=== PATIENT | female | born 1990 | race Caucasian/White ===

== ENCOUNTER 2017-03-07 08:33 | Emergency (ER) | payer OTHER ==
[2017-03-07 08:43] VITALS: BP 108/65
--- NOTE | 2017-03-07 12:58 | UC ---
Patricia Wade Edward, scribed for Nataliia Salazar DO on 03/07/17 at 0935 . Dizzy HPI HPI Summary: 27 y/o female presents to [facility] c/o acute on chronic dizziness starting two days ago. Patient repeatedly states she feels like she is "drunk". No EtOH use. PMHx dizzy spells since 11-12 y/o. In the past, patient has been able to sleep it off and uses Meclizine, which alleviates the dizziness. Patient states increased stressed from her job two days ago. Associated sx: REAL two days ago ( resolved now), lightheadedness, intermittent feelings of the room spinning, and nausea during episodes of room spinning. The room spinning is aggravated by turning her head quickly and turning to the side in bed. Patient denies syncope , unsteadiness, neck pain, fever, chills, CP, SOB. FHx mother has dizzy spells, breast CA, HTN. Medications reviewed on visit. - History Of Current Complaint Chief Complaint: UCDizziness Stated Complaint: DIZZINESS Time Seen by Provider: 03/07/17 09:33 Hx Obtained From: Patient Hx Last Menstrual Period: UNKNOWN-IUD Onset/Duration: Sudden Onset, Still Present Timing: Intermittent Episode Lasting Severity Initially: Moderate Severity Currently: Moderate Pain Intensity: 0 Character: Room Spinning - Intermittent, Lightheaded, Dizzy - Feels "drunk". No EtOH use Aggravating Factor(s): Headache Associated Signs And Symptoms: Positive: Negative - No neck pain, syncope, Nausea - During room spinning spells. Negative: Vomiting, Diaphoresis, Tinnitus , Chest Pain, SOB, Unsteady Gait, Decreased Oral Intake, Change In Medication, Change In Diet - Risk Factors Cardiac Risk Factors: Negative - Allergies/Home Medications Allergies/Adverse Reactions: Allergies Allergy/AdvReac Type Severity Reaction Status Date / Time No Known Allergies Allergy Verified 03/07/17 08:36 Home Medications: Home Medications Meclizine TAB* [Antivert 12.5 TAB*] 1 tab PO 03/07/17 [History] PMH/Surg Hx/FS Hx/Imm Hx Previously Healthy: No Neurological History: Other Other Neurological History: Dizzy spells - Surgical History Surgical History: Yes Surgery Procedure, Year, and Place: ORIF RIGHT ANKLE 08/2014 [facility] X2 - Family History Known Family History: Positive: Hypertension, Other - Mother has similar dizzy spells, breast CA - Social History Occupation: Employed Full-time Lives: With Family Alcohol Use: Occasionally Substance Use Type: None Substance Use Comment - Amount & Last Used: less than once a year Smoking Status (MU): Never Smoked Tobacco Review of Systems Constitutional: Negative - No fever, chills Skin: Negative Eyes: Negative ENT: Negative Respiratory: Negative - No SOB Cardiovascular: Negative - No CP Gastrointestinal: Negative Genitourinary: Negative Motor: Other - Unsteady during room spinning Neurovascular: Negative Musculoskeletal: Negative - No neck pain Neurological: Headache - Resolved now, Other - Dizziness, lightheadedness, feeling "drunk". No syncope Psychological: Negative All Other Systems Reviewed And Are Negative: Yes Physical Exam Triage Information Reviewed: Yes Appearance: No Pain Distress, Well-Nourished, Other: - looks uncomfortable Vital Signs: Initial Vital Signs Temp 98.3 F 03/07/17 08:38 Pulse 73 03/07/17 08:38 Resp 18 03/07/17 08:38 BP 108/65 03/07/17 08:38 Pulse Ox 98 03/07/17 08:38 Vital Signs Reviewed: Yes Eyes: Positive: Conjunctiva Clear. Negative: Discharge ENT: Positive: Hearing grossly normal, Pharynx normal, TMs normal, Other: - No lymphadenopathy. Negative: Tonsillar swelling, Tonsillar exudate, Trismus, Muffled/hoarse voice Neck: Positive: Supple, Nontender Respiratory: Positive: Lungs clear, Normal breath sounds, No respiratory distress, No accessory muscle use Cardiovascular: Positive: RRR, No Murmur Musculoskeletal Exam: Normal Neurological Exam: Normal - A&Ox3, CN II-XII INTACT, SENSORY MOTOR INTACT, REFLEXES INTACT, NO CEREBELLAR SIGNS, FACIAL SYMMETRY, NEGATIVE ROMBERG, NORMAL GAIT Neurological: Positive: Alert, Muscle Tone Normal Psychological: Positive: Age Appropriate Behavior Skin Exam: Normal, Other - Warm, dry, normal color Dizzy Course/Dx - Differential Dx/Diagnosis Differential Diagnosis/HQI/PQRI: Benign Paroxysmal Positional Vertigo, Labyrinthitis, Other - vertigo Provider Diagnoses: vertigo Discharge - Discharge Plan Condition: Stable Disposition: HOME Prescriptions: Meclizine TAB* [Antivert 12.5 TAB*] 25 mg PO TID PRN #30 tab PRN Reason: Vertigo Patient Education Materials: Meclizine (By mouth), Vertigo (ED), Benign Paroxysmal Positional Vertigo (ED) Forms: *Work Release Referrals: Elizabeth Knott MD [Primary Care Provider] - (follow up in 1-2 days) Additional Instructions: YOU WOULD LIKELY BENEFIT FROM OSTEOPATHIC TREATMENT. WE RECOMMEND THAT YOU FIND AN OSTEOPATHIC PHYSICIAN IN YOUR AREA WHO FOCUSES EXCLUSIVELY ON OSTEOPATHIC MANIPULATIVE MEDICINE WITH EXPERTISE IN MYOFACIAL, LYMPHATIC, VISCERAL AND CRANIAL WORK The documentation as recorded by the Patricia mccarthy Edward accurately reflects the service I personally performed and the decisions made by , Nataliia Salazar DO.
== END 2017-03-07 10:29 | disposition home or self-care (01) ==
LOC: UCEAST 08:33
DX: R42 Dizziness and giddiness (principal)
CPT/HCPCS: 99212; G0463